=== PATIENT | female | born 1980 | race Caucasian/White ===

== ENCOUNTER 2017-11-22 21:56 | Outpatient (CLI) | payer MEDICAID | END 2017-11-22 21:57 | disposition critical access hospital (66) | LOC: EMS 21:56 | PROVIDERS: ATTEND Surgery | DX: R10.9 Unspecified abdominal pain (principal); R11.10 Vomiting, unspecified | CPT/HCPCS: A0425; A0427 ==

== ENCOUNTER 2017-11-22 22:30 | Emergency (ER) | payer MEDICAID ==
--- NOTE | 2017-11-22 22:33 | ED Physician Documentation ---
PD HPI ABD PAIN - Stated complaint Stated Complaint: ABD PAIN, VOMITING - History obtained from History obtained from: Patient, EMS - History of Present Illness Timing - onset: Enter time (08:00), Today Timing - duration: Hours Timing - details: Gradual onset Quality: Pain Location: All over / everywhere Improved by: Laying still Worsened by: Moving, Palpation Associated symptoms: Nausea. No: Fever, Vomiting, Diarrhea, Constipation Similar symptoms before: Other (patient says she has endometriosis, although this pain is not similar) Recently seen: Not recently seen Review of Systems Constitutional: reports: Reviewed and negative Cardiac: reports: Reviewed and negative Respiratory: reports: Reviewed and negative GI: reports: Abdominal Pain, Nausea. denies: Vomiting, Constipation, Diarrhea : denies: Dysuria, Frequency Musculoskeletal: reports: Reviewed and negative PD PAST MEDICAL HISTORY - Past Medical History Past Medical History: Yes DISTRICT DIRECTOR: Endometriosis, Ovarian cysts - Past Surgical History General: Appendectomy - Present Medications Home Medications: Ambulatory Orders Medication Instructions Recorded Confirmed Ferrous Sulfate 1 tab PO DAILY 10/20/17 10/20/17 Hydrocodone/Acetaminophen 1 - 2 each PO Q6HR PRN #14 tablet 11/23/17 [Hydrocodon-Acetaminophen 5-325] - Allergies Allergies/Adverse Reactions: Allergies Allergy/AdvReac Type Severity Reaction Status Date / Time morphine Allergy Anaphylaxis Verified 11/22/17 22:35 penicillin G Allergy Anaphylaxis Verified 11/22/17 22:35 - Living Situation Living Arrangement: reports: At home - Social History Does the pt smoke?: No PD ED PE NORMAL - Vitals Vital signs reviewed: Yes - General General: Alert and oriented X 3, No acute distress, Well developed/nourished - Cardiac Cardiac: RRR, No murmur - Respiratory Respiratory: No respiratory distress, Clear bilaterally - Abdomen Abdomen: Soft, Non distended, Other (TTP across lower abdomen without guarding. there is mild rebound tenderness) - Back Back: No CVA TTP - Derm Derm: Normal color, Warm and dry, No rash - Extremities Extremities: No edema Results - Vitals Vitals: Vital Signs - 24 hr 11/22/17 11/23/17 11/23/17 22:31 00:49 01:46 Temperature 36.9 C 36.8 C Heart Rate 107 H 101 H 62 Respiratory 19 17 16 Rate Blood Pressure 122/79 117/70 126/73 O2 Saturation 100 98 99 Oxygen O2 Source Room air - Labs Labs: Laboratory Tests 11/22/17 11/22/17 11/23/17 23:30 23:30 00:17 WBC 17.5 H RBC 4.38 Hgb 13.3 Hct 39.1 MCV 89.4 MCH 30.3 MCHC 33.9 RDW 15.4 H Plt Count 199 MPV 8.7 Neut # (Auto) 15.7 H Lymph # (Auto) 0.7 L [place] # (Auto) 1.1 H Eos # (Auto) 0.0 Baso # (Auto) 0.0 Absolute Nucleated RBC 0.00 Nucleated RBC % 0.0 Sodium 135 Potassium 3.4 L Chloride 102 Carbon Dioxide 23 Anion Gap 10.0 BUN 11 Creatinine 0.7 Estimated GFR (MDRD) 95 Glucose 101 H Calcium 9.0 Total Bilirubin 1.2 H AST 22 ALT 18 Alkaline Phosphatase 35 L Total Protein 7.9 Albumin 4.7 Globulin 3.2 Albumin/Globulin Ratio 1.5 Lipase 25 Urine Color YELLOW Urine Clarity CLEAR Urine pH 7.0 Ur Specific [place] 1.010 Urine Protein TRACE Urine Glucose (UA) NEGATIVE Urine Ketones >=80 H Urine Occult Blood TRACE-INTA Urine Nitrite NEGATIVE Urine Bilirubin NEGATIVE Urine Urobilinogen 0.2 (NORMAL) Ur Leukocyte Esterase NEGATIVE Ur Microscopic Review NOT INDICATED Urine Culture Comments NOT INDICATED - Rads (name of study) CT A/P Radiology: Prelim report reviewed, See rad report PD MEDICAL DECISION MAKING - ED course Complexity details: reviewed results, re-evaluated patient, considered differential, d/w patient Departure - Departure Disposition: 01 Home, Self Care Clinical Impression: Abdominal pain Qualifiers: Abdominal location: generalized Qualified Code(s): R10.84 - Generalized abdominal pain Condition: Good Instructions: ED Abdominal Pain Unkn Cause, ED Cyst Ovarian Follow-Up: Kee Callaway MD [Provider Admit Priv/Credential] - (Call to arrange for next available appointment) Prescriptions: Hydrocodone/Acetaminophen [Hydrocodon-Acetaminophen 5-325] 1 - 2 each PO Q6HR PRN #14 tablet PRN Reason: Pain Discharge Date/Time: 11/23/17 01:52
[2017-11-22 23:38] LABS: BASOPHILS % (AUTO) 0.2 %; HGB - HEMOGLOBIN 13.3 g/dL (12.0-16.0); LYMPHOCYTES # (AUTO) 0.7 10^3/uL (1.5-3.5); LYMPHOCYTES % (AUTO) 3.9 %; MEAN CORPUSCULAR HEMOGLOBIN 30.3 pg (27.0-31.0); MEAN CORPUSCULAR HGB CONC 33.9 g/dL (32.0-36.0); MEAN CORPUSCULAR VOLUME 89.4 fL (81.0-99.0); MEAN PLATELET VOLUME 8.7 fL (7.9-10.8); MONOCYTES # (AUTO) 1.1 10^3/uL (0.0-1.0); MONOCYTES % (AUTO) 6.3 %; NEUTROPHILS # (AUTO) 15.7 10^3/uL (1.5-6.6); NEUTROPHILS % (AUTO) 89.6 %; PLT - PLATELET COUNT 199 10^3/uL (130-450); RED BLOOD COUNT 4.38 10^6/uL (4.20-5.40); RED CELL DISTRIBUTION WIDTH 15.4 % (12.0-15.0); WHITE BLOOD COUNT 17.5 x10^3/uL (4.8-10.8)
[2017-11-22] MEDS ORDERED: IOPAMIDOL-300 100 ML VIAL ONE (23:46)
[2017-11-22 23:50] LABS: ALBUMIN 4.7 g/dL (3.2-5.5); ALBUMIN/GLOBULIN RATIO 1.5 (1.0-2.2); BILIRUBIN,TOTAL 1.2 mg/dL (0.2-1.0); CREATININE 0.7 mg/dL (0.4-1.0); TOTAL PROTEIN 7.9 g/dL (6.7-8.2)
[2017-11-22] MEDS ORDERED: IOPAMIDOL-300 100 ML VIAL IVP ONE (23:58)
--- NOTE | 2017-11-23 00:28 | CT Report ---
EXAM: CT ABDOMEN AND PELVIS EXAM DATE: 11/23/2017 12:11 AM. CLINICAL HISTORY: Lower abdomen pain. Vomiting COMPARISONS: None. TECHNIQUE: Routine helical CT imaging was performed through the abdomen and pelvis. IV contrast: 100 cc of Isovue-300. Enteric contrast: No. Reconstructions: Coronal and sagittal. In accordance with CT protocol optimization, one or more of the following dose reduction techniques w ere utilized for this exam: automated exposure control, adjustment of mA and/or KV based on patient s ize, or use of iterative reconstructive technique. FINDINGS: Lung Bases: Unremarkable. Liver: Normal. No masses. Gallbladder/Bile Ducts: Unremarkable. Spleen: Normal. Pancreas: Normal. Adrenal Glands: Normal. Kidneys: Normal. No masses or hydronephrosis. Peritoneal Cavity/Bowel: Normal. No free fluid, free air or adenopathy. No masses or acute inflammato ry process. Appendix surgically absent. Pelvic Organs: Complex right adnexal cysts, 3.7 x 4.6 x 3.9 cm and 2.9 x 3.3 x 4.3 cm. Dominant folli hernandez on the left ovary. Small amount of complex free fluid. The uterus and bladder are unremarkable. Vasculature: No aneurysms or other significant abnormality. Bones: No significant abnormality. Other: None. IMPRESSION: Complex right adnexal cysts with small amount of complex free fluid in the cul-de-sac. [facility] Referring Provider Line: [phone] SITE ID: [id number]
[2017-11-23 00:46] LABS: BILIRUBIN,URINE NEGATIVE (NEGATIVE); GLUCOSE, URINE (UA) NEGATIVE (NEGATIVE); KETONES,URINE (UA) >=80 mg/dL (NEGATIVE); LEUKOCYTE ESTERASE, URINE NEGATIVE (NEGATIVE); NITRITE,URINE NEGATIVE (NEGATIVE); OCCULT BLOOD,URINE TRACE-INTA (NEGATIVE); PROTEIN,URINE TRACE mg/dL (NEGATIVE); UROBILINOGEN,URINE 0.2 (NORMAL) E.U./dL (NORMAL)
[2017-11-23 00:52] LABS: CLARITY,URINE CLEAR (CLEAR)
[2017-11-23] MEDS ORDERED: HYDROcod/ACET 5/325 Prepack 4 PO STA (01:21)
[2017-11-23] MEDS ORDERED: KETOROLAC 30 MG/ML VIAL IVP STA (01:21)
[2017-11-23 01:51] VITALS: BP 126/73
== END 2017-11-23 01:52 | disposition home or self-care (01) ==
LOC: EDUNIT# → ED 22:30
DX: R10.84 Generalized abdominal pain (principal)
CPT/HCPCS: 36415; 74177; 80053; 81003; 83690; 85025; 96374; 99283; 99284; Q9967; 81001; 87086